=== PATIENT | male | born 1955 | race Caucasian/White ===

== ENCOUNTER → 2017-02-26 | Outpatient (CLI) | payer MEDICARE, MEDICAID ==
[2017-02-26 15:22] VITALS: BP 150/85
--- NOTE | 2017-02-26 15:22 | Urgent Care T Sheet Gen (E) ---
Intake General Temperature (Fahrenheit): 98.2 Pulse: 74 Blood Pressure Systolic: 150 Blood Pressure Diastolic: 85 Respirations: 18 SPO2: 99 Description of Symptoms Patient presents with illness x 2 days. Notes cough and sore throat. Caregivers have noticed him pulling on his ears. No fever. no meds. Respiratory Constitutional Symptoms: No syptoms reported EENTM: Ear pain Throat pain Respiratory: Cough Cardiovascular: No symptoms reported Gastrointestinal/Abdominal: No symptoms reported All Other Systems Reviewed Remaining Systems: All other systems reviewed with negative findings Physical Exam Physical Exam General Appearance: WD/WN No apparent distress Eyes, Ears, Nose, Throat Ex: TMs normal (there is cerumen in bilateral ear canals however both TMs are clear) Pharyngeal erythema Other (clear nasal drainage, no congestion) Neck Exam: SuppleNo Lymphadenopathy Respiratory Exam: Lungs clear Normal breath sounds Cardiovascular Exam: Regular rate, rhythm Progress/Orders Lab Results Labs Results: Rapid Strep (negative) Departure Urgent Care Impression Impression: Primary Impression: URI (upper respiratory infection) Qualified Code: J00 - Acute nasopharyngitis [common cold] Departure Disposition: 01 HOME OR SELF-CARE Condition: Stable Referrals: CARLIE MOSER MD (PCP) Additional Instructions: rapid strep was negative. while he was afebrile, I wanted to rule out strep given the fact that he is non-verbal and his throat was very red. Symptomatic treatment. Rest. Fluids Tylenol and Robitussin as needed Return if no better Patient's caregiver understands DC instructions. All questions were answered. End of report . ANALI SPAIN February 26, 2017 15:22
== END ==
LOC: MHUC 14:34
PROVIDERS: ATTEND Physician Assistant
DX: J00 Acute nasopharyngitis [common cold] (principal)
CPT/HCPCS: 87880; 99213